=== PATIENT | male | born 1995 | race Caucasian/White ===

== ENCOUNTER 2017-08-22 21:36 | Emergency (ER) | payer BC ==
[2017-08-22 21:41] VITALS: BP 147/78
== END 2017-08-22 23:45 | disposition left against medical advice (07) ==
LOC: ED 21:36
DX: L50.9 Urticaria, unspecified (principal); R11.0 Nausea; Z53.21 Procedure and treatment not carried out due to patient leaving prior to being seen by health care provider
CPT/HCPCS: 99281